=== PATIENT | female | born 1945 | race Caucasian/White ===

== ENCOUNTER → 2018-02-24 07:10 | Day surgery (SDC) | payer MEDICARE ==
--- NOTE | 2018-02-14 22:20 | HP ---
CC: Dr. Laquita Hong * PREOPERATIVE HISTORY AND PHYSICAL: DATE OF ADMISSION: 02/24/18 This patient is scheduled for same-day surgery admission by Dr. Negron on 02/24/18. DATE OF PREOPERATIVE HISTORY AND PHYSICAL EXAMINATION: 02/14/18. ATTENDING SURGEON: Dr. Radha Negron * (dictated by Alicia Diggs NP). CHIEF COMPLAINT: Right breast cancer. HISTORY OF PRESENT ILLNESS: The patient is a 72-year-old female recently evaluated by Dr. Negron for a new diagnosis of right breast cancer. The patient had not noticed any changes in her breast, but on a recent mammogram, an abnormality was identified in the right breast. A sonogram confirmed the abnormality and she underwent a biopsy 2 days later that revealed invasive ductal cancer. She denies any breast pain or nipple discharge. She denies any family history of breast cancer or ovarian cancer. Menarche was at age 12, menopause at age 57, first delivery at age 24. She took control pills for less than 10 years. She has never had radiation to the chest and she has not had previous breast biopsies. She did breast-feed. Dr. Negron has examined the patient and discussed the findings with her; she has recommended sonoguided-needle localization excision of the right breast cancer and sentinel lymph node biopsy as same-day surgery procedure. Dr. Negron discussed the nature of the surgical procedure, the rationale for the procedure, the relevant risks, benefits, and alternatives, and today I reviewed the expected postoperative care and recovery. The patient has had a chance to ask questions and stated that she understands the information and is satisfied with the answers given to her questions. She will sign surgical consent on the day of surgery. PAST MEDICAL HISTORY: Significant for hypertension and mitral valve prolapse and mild asthma. PAST SURGICAL HISTORY: Vaginal hysterectomy in 2000, tonsillectomy many years ago, cardiac catheterization at [facility] in 2016. MEDICATIONS: 1. Liza 180 mg p.o. every other day. 2. Amlodipine 5 mg p.o. daily. 3. Famotidine 20 mg 1 tablet by mouth daily. 4. Aspirin 81 mg p.o. daily and the patient will take her last dose 02/18/18 in preparation for surgery. 5. Potassium gluconate 99 mg p.o. daily. 6. Zolpidem 5 mg one-half tablet at bedtime. She also takes the following supplements: 1. Vitamin E. 2. Vitamin B12. 3. Vitamin D3. 4. Calcium plus vitamin D. 5. Magnesium with zinc. 6. Fish oil/omega-3. She uses acetaminophen or ibuprofen p.r.n. ALLERGIES: ERYTHROMYCIN causes hives. FAMILY HISTORY: No known history of breast or ovarian cancer; mother had heart disease and thyroid disease. Father had a stroke. No known anesthesia reactions, bleeding tendencies, or clotting disorders. SOCIAL HISTORY: She is ; she is a nonsmoker. She drinks alcohol socially and denies the use of other substances and she exercises routinely. REVIEW OF SYSTEMS: Constitutional: No fevers, chills, excessive fatigue or weight loss. Endocrine: No diabetes or thyroid disease. Hematologic: No easy bruising or bleeding. She has never received a blood transfusion. Breasts : As described in history of present illness. Respiratory: No dyspnea on exertion. No chronic cough. Cardiovascular: No anginal chest pain, no palpitations; she does have a history of mitral valve prolapse and is followed by a shot bagger in [place] by the name of Dr. Stratton; she had a stress test and an echocardiogram and a cardiac catheterization in 2016 for evaluation of the mitral valve prolapse and was told that all of the results were within normal limits. Gastro-intestinal: No nausea, vomiting, diarrhea, GI bleeding, or constipation. Genitourinary: No dysuria. Musculoskeletal: No joint or back pain. Neurologic: No headache or blurred vision. No areas of focal weakness or numbness. General: No history of deep vein thrombosis or pulmonary embolism. With previous anesthesia, she experienced a prolonged headache. PHYSICAL EXAMINATION GENERAL SURVEY: The patient is a 72-year-old female, well-developed, well- nourished, in no acute distress. VITAL SIGNS: Height 68 inches, weight 178 pounds, body mass index 27.1. Blood pressure 102/68, pulse 60 and regular, respiratory rate 16, temperature 97.7 tympanic. HEENT: Benign. NECK: Supple. No cervical lymphadenopathy. No thyromegaly. No supraclavicular lymphadenopathy. BREASTS: Symmetrical. No masses are noted in the right breast on palpation. No masses are noted in the left breast on palpation. Nipples are normal bilaterally. LUNGS: Breath sounds bilaterally clear and equal. HEART: Regular rate and rhythm. No murmurs or rubs appreciated. ABDOMEN: Active bowel sounds, soft, nondistended, and nontender throughout. No obvious masses or organomegaly or evidence of ventral hernia. EXTREMITIES: Warm without edema or skin ulcerations. PELVIC EXAM: Deferred. RECTAL EXAM: Deferred. NEUROLOGIC: Alert and oriented x3. Steady gait. SKIN: Warm, dry, and intact. IMPRESSION: Right breast cancer. PLAN: Same-day surgery admission to Dr. Negron's service on 02/24/18, for sonoguided-needle localization excision of right breast cancer and sentinel lymph node biopsy. HARSHA DIGGS, HEALTH EDUCATION ASSISTANT [id number]/[facility] #: [id number] RUBEN
[~2018-02-24 07:10] MED LIST: Buffered Lidocaine 0.9% SYRIN* 5 ML/SYR SYRINGE INTRADERM ONE; Bupivacaine 0.5% SDV PF* 30ML VIAL ONE; Dexamethasone IV* 4 MG/ML 1 ML (4 MG) IV SLOW PU ONE; Dexamethasone IV* 4 MG/ML 1 ML (4 MG) ONE; DiMENhydriNATE IV* 50 MG/ML VIAL IV PUSH PRN; HYDROcodone/ACETAMIN 5-325 MG* 1 TAB PO PRN; Heparin VIAL(*) 5000 UNITS/ML VIAL (FIVE THOUSAND) ONE; Lidocaine 1% INJ* 10 MG/ML 30 ML SDV ONE; Lidocaine 2% PF * 5 ML VIAL ONE; Lidocaine 2.5%/Prilocain 2.5%* 5 GM TUBE ONE; Methylene Blue 0.5 %* 50 MG/10 ML AMP IV ONE; Midazolam* 1 MG/ML 5 ML VIAL (5 MG) ONE; Naloxone* 0.4 MG/ML 1 ML VIAL IV PRN; Ondansetron INJ* 2 MG/ML VIAL IV PRN; Ondansetron ODT TAB* 4 MG ONE; Ondansetron ODT TAB* 4 MG PO ONE; Propofol* 10 MG/ML 20 ML BTL IV PUSH ONE; Scopolamine 1.5 mg* PATCH TRANSDERM PRN; ceFAZolin 2 GM PREMIX (*) 2 GM/50 ML BAG IVPB ONE; fentaNYL* 50 MCG/ML 2 ML VIAL (100 MCG VIAL) IV PRN; fentaNYL* 50 MCG/ML 2 ML VIAL (100 MCG VIAL) ONE; oxyCODONE/Acetamin 5/325 MG* TAB ONE; oxyCODONE/Acetamin 5/325 MG* TAB PO PRN
--- NOTE | 2018-02-24 09:06 | RAD ---
INDICATION: Right breast mass present in the 12 clock, needle localization procedure. COMPARISON: Correlation is made with prior mammograms and breast ultrasound studies from January 26, 2018 and February 02, 2018. TECHNIQUE: The benefits and risks of the procedure were explained to the patient. The patient consented to the exam. A timeout was performed before beginning the procedure. Multiple images of the right breast were obtained. Again note is made of a solid 1 cm mass approximately at the 12:00 position. The patient was prepped and draped in the usual sterile fashion. The right breast was anesthetized with 1% lidocaine. Using ultrasound guidance a needle was placed through the posterior aspect of the mass at the 12:00 position. This was exchanged for a Parmar type wire. A postprocedure ultrasound demonstrates that the wire extending through the mass. The patient tolerated procedure well without incident. Mediolateral oblique, craniocaudad and mediolateral images of the right breast were obtained after the needle localization demonstrating the wire extending through the posterior aspect of the mass at the 12:00 position in the breast. There is no evidence for hematoma. IMPRESSION: SUCCESSFUL ULTRASOUND-GUIDED RIGHT BREAST NEEDLE LOCALIZATION.
--- NOTE | 2018-02-24 12:00 | RAD ---
INDICATION: Right breast carcinoma. Comparison: Correlation is made with prior mammograms and a right breast ultrasound from February 02, 2018. Technique: The benefits and risks of the procedure were explained to the patient. The patient consented to the exam. A timeout was performed before beginning the procedure. 0.32 mCi of technetium 99m filtered sulfur colloid were injected in a anselmo-areolar location. Four intradermal injections were made. The patient tolerated the procedure well without incident. Multiple images of the chest and right axilla were obtained in the frontal, oblique and lateral projections. FINDINGS: There was a single sentinel node present in the right axilla. This was marked and localized on the patient's skin. IMPRESSION: THERE IS A SINGLE SENTINEL NODE IN THE RIGHT AXILLA WHICH WAS LOCALIZED IN MARKED ON THE PATIENT'S SKIN.
--- NOTE | 2018-02-24 16:44 | BRIEFOPN ---
Brief Operative Note - Surgery Procedures: 02/24/18 Op Note (Dictated) Pre-op dx: right breast cancer Post-op dx: same Procedure: needle localization excision of right breast cancer and sentinel lymph node biopsy Surgeon: Jamil Asst: KENNY Paulino; JAMI Yancey Anesth: local-MAC EBL: 30 cc Complications: none SCDs: on during surgery Abx: given pre-op Pt. tolerated procedure well and was transferred to in a stable condition. CLFoster
[2018-02-24 17:42] VITALS: BP 136/76
--- NOTE | 2018-02-25 13:21 | OP ---
CC: Dr. Laquita Sanchez; [facility] * DATE OF OPERATION: 02/24/18 - [facility] DATE OF : 45 SURGEON: Radha Negron MD LOCK SETTER: KENNY Sheikh; and GREGORY Olea student. PRE-OP DIAGNOSIS: Right breast cancer. POST-OP DIAGNOSIS: Right breast cancer. OPERATIVE PROCEDURE: Needle localization and excision of right breast cancer and sentinel lymph node biopsy. INDICATIONS: Ms. Mauro is a 72-year-old woman recently diagnosed with breast cancer prompting the plan for surgical intervention. On the morning of surgery , she underwent needle localization and sentinel lymph node localization without difficulty. DESCRIPTION OF PROCEDURE: She was then brought to the operating room, placed on the OR table in the supine position and given IV sedation. The right breast was prepped and draped in the usual sterile fashion as well as the axilla. The breast was infiltrated with local anesthetic around the localizing wire and then a curvilinear elliptical incision encompassing the wire was made. Subcutaneous tissue was then divided with electrocautery to remove the mass of tissue from around the wire. When it was recognized that the mass of tissue did not encompass the entire wire, the specimen was marked in the usual fashion and handed off for confirmation from Radiology, but then an additional tissue from posterolateral to the first specimen was taken. This was also done with electrocautery and once this was specimen was out, it was marked in the usual fashion and then handed off as a specimen to be sent to Radiology. Then, hemostasis was achieved with electrocautery and once this appeared adequate the cavity was marked with clips and the incision was closed with 3-0 Vicryl in the subcutaneous layer and the skin was closed with 4-0 Prolene in a subcuticular fashion. Attention was then turned to the axilla. Here, local anesthetic was infiltrated into the skin at the level of the sentinel lymph node and then a curvilinear incision was made. Subcutaneous tissue was divided with electrocautery down to the level of the axillary fat pad. Then, using the navigator, the approximate location of the node was identified and dissection was begun in this area using primarily sharp and blunt dissection. The lymph node was identified and noted to have elevated in situ counts to about 2200. It was excised using clips to control the small lymphatic and blood vessels that approached the gland. Once it was out, it had ex vivo counts measured at 3200. The axillary bed counts were 5. The wound was checked for hemostasis, which was achieved with a combination of suture ligature and clips and once this appeared adequate closure was accomplished with 3-0 Vicryl in the subcutaneous layer and the skin was closed with 4-0 Prolene in a subcuticular fashion. Meanwhile, the report came back from Radiology that the specimens that have been sent did not appear to contain the abnormality, so the breast incision was opened and additional tissue from the superior breast was taken. This was done after trying to identify any residual abnormality with intraoperative ultrasound , but this did not identify any residual abnormality. As we were working to remove the tissue superiorly, Radiology called back with a report that on tomosynthesis the first specimen did indeed appear to contain the abnormality, so we completed the excision of a small amount of tissue from the superior breast, marked it in the usual fashion and handed it off as a specimen. The wound was then checked for hemostasis, which was achieved with electrocautery and then closure was accomplished with 3-0 Vicryl to reapproximate the subcutaneous tissue and the skin was closed with 4-0 Prolene in a subcuticular fashion. Meanwhile, at my request, the specimens had been sent from Radiology to Pathology, where on sectioning it was confirmed that the first specimen did indeed contain an abnormality consistent with the known cancer. All sponge and instrument counts were correct. The patient tolerated the procedure well and was transferred to Recovery in a stable condition. [id number]/[facility] #: [id number] RUBEN
== END | disposition home or self-care (01) ==
LOC: SDS 07:10
PROVIDERS: ATTEND Surgery
DX: C50.911 Malignant neoplasm of unspecified site of right female breast (principal); I10 Essential (primary) hypertension; J45.909 Unspecified asthma, uncomplicated; I34.1 Nonrheumatic mitral (valve) prolapse
CPT/HCPCS: 77061; 78195; 88307; 88342; A9270-GY; A9541; G0279; J0690; J1100; J1644; J2250; J2704; J3010

== ENCOUNTER 2019-08-31 08:55 | Observation (INO) | payer MEDICARE ==
--- NOTE | 2019-08-24 03:51 | HP ---
HISTORY AND PHYSICAL: DATE OF ADMISSION/SURGERY: 09/14/19 DATE OF OFFICE VISIT: 08/22/19 SURGEON: Felicia Alvarez MD * (DICTATED BY GREGORY CALLES) PROCEDURE: Right total knee arthroplasty. CHIEF COMPLAINT: Right knee pain. HISTORY OF PRESENT ILLNESS: Ms. Mauro is a 74-year-old female with end-stage osteoarthritis of the right knee. She has failed conservative treatment and elected to proceed with a right total knee arthroplasty. PAST MEDICAL HISTORY: Hypertension, high cholesterol, heart murmur, asthma, and uterine and breast cancer. PAST SURGICAL HISTORY: Hysterectomy, tonsillectomy, lumpectomy, D and C, and cardiac catheterization. CURRENT MEDICATIONS: 1. Liza-D. 2. Amlodipine 5 mg a day. 3. Famotidine 20 mg a day. 4. Aspirin 81 mg a day. 5. Vitamin E. 6. Vitamin D3. 7. Potassium. 8. Calcium with vitamin D. 9. Magnesium with zinc. 10. Fish oil. 11. Zolpidem tartrate 12.5 mg q.h.s. 12. Metoprolol 25 mg daily. 13. Atorvastatin calcium 10 mg a day. 14. Arimidex 1 mg a day. ALLERGIES: AZITHROMYCIN. FAMILY HISTORY: Coronary artery disease and stroke. SOCIAL HISTORY: She is a 74-year-old female. She lives with her . She does not smoke or use drugs. Uses occasional alcohol. REVIEW OF SYSTEMS: A complete 14-point review of systems was reviewed with the patient. It was positive for asthma and GERD. She denies history of DVT, PE, hepatitis, HIV, or anesthesia problems. PHYSICAL EXAMINATION GENERAL: She is well developed, well nourished, in no acute distress. VITAL SIGNS: She stands 5 feet 8 inches tall, weighs 187 pounds. Her blood pressure is 132/78 and heart rate 64. HEENT: Normocephalic, atraumatic. NECK: Supple. No palpable lymph nodes. PULMONARY: The lungs are clear to auscultation bilaterally. CARDIO: Regular rate and rhythm. Strong S1, S2. ABDOMEN: Soft, nontender, nondistended. NEUROLOGICAL: She is alert and oriented x3. MUSCULOSKELETAL: Right lower extremity: The skin is intact. There are no open wounds or abrasions. There is a moderate effusion of the right knee joint and some tenderness along the medial joint line. Range of motion is 15 to 100 degrees of flexion with significant patellofemoral crepitus. She is able to dorsiflex and plantarflex and has a 2+ dorsalis pedis pulse and intact sensation. ASSESSMENT AND PLAN: Ms. Mauro is a 74-year-old female with end-stage osteoarthritis of the right knee. She has failed conservative treatment and elected to proceed with a right total knee arthroplasty. The surgery is scheduled for 09/14/[address] Alvarez discussed the risks and benefits of the surgery at today's visit and all of her questions were answered. She will follow up with Dr. Alvarez 2 weeks after the surgery. GREGORY CALLES [id number]/[facility] #: [id number] MTDD
[~2019-08-31 08:55] MED LIST changes: -Buffered Lidocaine 0.9% SYRIN* 5 ML/SYR SYRINGE INTRADERM ONE; +Buffered Lidocaine 1% SYRIN* 1 ML/SYRINGE INTRADERM ONE; -Bupivacaine 0.5% SDV PF* 30ML VIAL ONE; -Dexamethasone IV* 4 MG/ML 1 ML (4 MG) ONE; -DiMENhydriNATE IV* 50 MG/ML VIAL IV PUSH PRN; +Famotidine IV* 10 MG/ML 2 ML (20 mg) IV ONE; +Gabapentin CAP(*) 300 MG PO ONE; -HYDROcodone/ACETAMIN 5-325 MG* 1 TAB PO PRN; -Heparin VIAL(*) 5000 UNITS/ML VIAL (FIVE THOUSAND) ONE; +Lactated Ringers 1000 ML Bag* 1,000 ML IV SCH; -Lidocaine 1% INJ* 10 MG/ML 30 ML SDV ONE; -Lidocaine 2% PF * 5 ML VIAL ONE; -Lidocaine 2.5%/Prilocain 2.5%* 5 GM TUBE ONE; -Methylene Blue 0.5 %* 50 MG/10 ML AMP IV ONE; -Midazolam* 1 MG/ML 5 ML VIAL (5 MG) ONE; -Naloxone* 0.4 MG/ML 1 ML VIAL IV PRN; -Ondansetron INJ* 2 MG/ML VIAL IV PRN; -Ondansetron ODT TAB* 4 MG ONE; -Ondansetron ODT TAB* 4 MG PO ONE; -Propofol* 10 MG/ML 20 ML BTL IV PUSH ONE; -Scopolamine 1.5 mg* PATCH TRANSDERM PRN; +Tranexamic Acid 1,000 MG in NS 0.9% 50 ML* (outpatient use) IV SCH; -ceFAZolin 2 GM PREMIX (*) 2 GM/50 ML BAG IVPB ONE; +celeCOXIB CAP* 200 MG PO ONE; -fentaNYL* 50 MCG/ML 2 ML VIAL (100 MCG VIAL) IV PRN; -fentaNYL* 50 MCG/ML 2 ML VIAL (100 MCG VIAL) ONE; -oxyCODONE/Acetamin 5/325 MG* TAB ONE; -oxyCODONE/Acetamin 5/325 MG* TAB PO PRN
[2019-08-31] MEDS ORDERED: Dexamethasone IV* 4 MG/ML 1 ML (4 MG) ONE (09:35)
[2019-08-31] MEDS ORDERED: ceFAZolin 2 GM PREMIX in ORs 2 GM/50 ML BAG ONE (09:35)
[2019-08-31] MEDS ORDERED: Gabapentin CAP(*) 300 MG ONE (09:35)
[2019-08-31] MEDS ORDERED: celeCOXIB CAP* 200 MG ONE (09:35)
[2019-08-31] MEDS ORDERED: Famotidine IV* 10 MG/ML 2 ML (20 mg) ONE (09:36)
[2019-08-31] MEDS ORDERED: Buffered Lidocaine 1% SYRIN* 1 ML/SYRINGE INTRADERM ONE (09:36)
[2019-08-31] MEDS ORDERED: Bupivacaine 0.5% SDV PF* 30ML VIAL ONE (09:55)
[2019-08-31] MEDS ORDERED: ROPIVACAINE 5 MG/ML 30 ML BTL (0.5%) ONE ×2 (09:57→11:15)
[2019-08-31] MEDS ORDERED: fentaNYL* 50 MCG/ML 2 ML VIAL (100 MCG VIAL) ONE (09:57)
[2019-08-31] MEDS ORDERED: Midazolam* 1 MG/ML 2 ML VIAL (2 MG) ONE ×2 (09:57→11:56)
[2019-08-31] MEDS ORDERED: Lidocaine 2% PF * 5 ML VIAL ONE (09:57)
[2019-08-31] MEDS ORDERED: KETAMINE HCL* 50 MG/ML 10 ML VIAL ONE (11:57)
[2019-08-31] MEDS ORDERED: Propofol* 500 MG/50 ML BTL ONE (12:09)
[2019-08-31] MEDS ORDERED: Naloxone* 0.4 MG/ML 1 ML VIAL IV PRN (12:54)
[2019-08-31] MEDS ORDERED: HYDROmorphone INJ1* 1 MG/ML SYRINGE IV PRN (12:54)
[2019-08-31] MEDS ORDERED: Ondansetron INJ* 2 MG/ML VIAL IV PRN ×2 (12:54→14:15)
[2019-08-31] MEDS ORDERED: Acetaminophen IV 1GM/100ML * 1,000 MG/100 ML VIAL IVPB ONE (12:54)
[2019-08-31] MEDS ORDERED: EPHEDrine (Pressors)* 50 MG/ML VIAL ONE (12:58)
[2019-08-31] MEDS ORDERED: Acetaminophen IV 1GM/100ML * 100 ML ONE (14:08)
[2019-08-31] MEDS ORDERED: Ondansetron ODT TAB* 4 MG PO PRN (14:15)
[2019-08-31] MEDS ORDERED: Ondansetron TAB* 4 MG PO PRN (14:15)
[2019-08-31] MEDS ORDERED: diPHENhydraMINE IV* 50 MG/ML 1 ml VIAL (BENADRYL) IV PRN (14:15)
[2019-08-31] MEDS ORDERED: Polyethylene Glycol 3350* 17 GM PACKET PO PRN (14:15)
[2019-08-31] MEDS ORDERED: diPHENhydraMINE PO* 25 MG PO PRN (14:15)
[2019-08-31] MEDS ORDERED: Cyclobenzaprine TAB* 10 MG PO PRN (14:15)
[2019-08-31] MEDS ORDERED: Magnesium Hydroxide LIQ* 30 ML UDC PO PRN (14:15)
[2019-08-31] MEDS ORDERED: Morphine INJ* 2 MG/ML 1 ML SYRINGE (TWO MG - NEW SYRINGE VERSION) IV PRN (14:15)
[2019-08-31] MEDS ORDERED: oxyCODONE/Acetamin 5/325 MG* TAB PO PRN (14:15)
[2019-08-31] MEDS ORDERED: traMADol TAB* 50 MG PO PRN (14:15)
--- NOTE | 2019-08-31 14:22 | OP ---
Operative Report - Blank - Operative Report Date of Operation: 08/31/19 Note: DAYDAY KWOK 1945 Date of Surgery: 08/31/19 Felicia Alvarez MD Tie Fastener: Kilo JENKINS did help throughout the procedure with preparation of the knee, wound retraction, manipulation of the knee, and wound closure. Anesthesiologist: Horacio Cho Anesthesia Type: Spinal Preoperative Diagnosis: Right severe degenerative osteoarthritis of the knee Postoperative Diagnosis: As above Procedure Performed: Right Total Knee Arthroplasty Tourniquet time: 41 minutes Complications: None Specimen: Bone and cartilage from the right knee joint sent to pathology. Hardware Used: Cemented Bailey and Nephew total knee hardware was used - For the femur a size 5 narrow right oxinium legion posterior stabilized femoral component, for the tibia a size 3 right katina II tibial baseplate, for the insert a size 9mm 3-4 posterior stabilized articular polyethylene insert, and for the patella a size 32 3-peg all poly patella. Brief History/Indication: DAYDAY KWOK was known in clinic and had a history of severe right knee pain and swelling. She failed conservative treatment with anti-inflammatories, pain pills, intra-articular injections and physical therapy. She elected to undergo right total knee arthroplasty due to continued pain and decreased quality of life. Radiographs showed severe end stage osteoarthritis of the knee with bone on bone contact. Informed consent was obtained from the patient. She understood the risks of surgery included but were not limited to: bleeding, infection, damage to nearby structures, intraoperative fracture, nerve palsy, failure of the hardware, early loosening, knee stiffness or loss of motion, anesthesia complications, stroke, heart attack , blood clot and . She wished to proceed. Intra-Operative Findings: Intraoperatively the patient was noted to have severe loss of cartilage in all 3 compartments of the knee. Description of the Procedure: DAYDAY KWOK was identified in the preanesthesia unit. Her right knee was marked as the correct operative side. Informed consent was signed and placed in the chart. The patient was taken to the operating room and placed under anesthesia without complication. A almodovar catheter was placed. A tourniquet was placed on the right thigh. The right lower extremity was prepped and draped in the usual sterile fashion. Preoperative time-out was made to correctly identify the patient, side and site. Appropriate intraoperative antibiotics were given within one hour of incision. Tourniquet was inflated. A midline incision was made and carried sharply down to the extensor mechanism. A new 10 blade was used to make a standard medial parapatellar arthrotomy. The patella was subluxed laterally. Electrocautery was used to dissect soft tissue off the superomedial tibia to the midsagittal plane. The knee was flexed up. The anterior horn of the lateral meniscus and the ACL were sharply incised. A drill was used to enter the distal femur. The intramedullary distal femoral cutting guide was pinned on the distal femur. The oscillating saw was used to make the distal femoral cut. The external rotation guide was pinned on the distal femur and the distal femur was sized to a size 5. The size 5 multi-cutting jig was pinned on the distal femur. The oscillating saw was used to make the appropriate 4 chamfer cuts. Next the PCL was completely released. The extramedullary tibial cutting guide was pinned on the proximal tibia and the oscillating saw was used to make the proximal tibial cut perpendicular to the mechanical axis of the tibia. The bone was carefully removed. The knee was brought out into full extension. The spacer block was placed and had excellent fit with the knee in full extension. The medial and lateral ligaments were well balanced. The flexion and extension gaps were well balanced. The knee was flexed up. Lamina tugboat dispatcher was placed both medially and laterally. Any remaining meniscus was removed with electrocautery. Curved osteotome was used to remove any posterior osteophytes. The tibial tray and drop chance were placed and confirmed a satisfactory tibial cut. The size 5 right narrow femoral trial was impacted onto the distal femur. This trial had excellent fit and stability. The box for the posterior stabilized implant was prepared using a box cut osteotome and a reamer. Next a tibial tray trial and 9 mm insert trial was placed. The knee was taken through a range of motion and had full extension to 130 degrees of flexion. Patellofemoral tracking was satisfactory. The patella was inverted and sized to a size 32. Three peg holes were drilled through the size 32 drill guide. The trial patella was placed and the knee was taken through a range of motion. There was satisfactory patellofemoral tracking. All trials were removed. The tibia was subluxed anteriorly and sized to a size 3. The proximal tibial was prepared with a size 3 keel punch. All bony cut surfaces were irrigated with sterile saline and dried. Final implants were cemented into place starting with the tibia, followed by the femur, and last the patella. A 9 mm insert trial was placed and the knee was brought into full extension. Tourniquet was turned down and the knee was copiously irrigated with sterile saline. Electrocautery was used to obtain meticulous hemostasis. Once the cement had fully cured, the insert trial was removed. Any excess cement was removed from around the hardware and capsule. Final insert chosen was a 9 mm posterior stabilized Katina II articular insert size 3-4. Stability of the insert was checked and noted to be stable. The extensor mechanism was closed using number 1 vicryls. The rest of the incision was closed in a layered fashion using 0 and 2-0 vicryls. The skin was closed using 3-0 nylon suture. Sterile xeroform, 4x4s and webril were used to cover the incision. Gian wrap and cold pack were used to cover the dressings. The patients anesthesia was reversed without difficulty. She was taken to the PACU in stable condition. Intended weight-bearing will be as tolerated.
[2019-08-31] MEDS: Lactated Ringers 1000 ML Bag* 1,000 ML IV SCH (17:31)
[2019-08-31] MEDS: ceFAZolin 1 GM ADVAN(*) 1 GM in NS 0.9% 50 ML* 50 ML IVPB SCH (20:39)
[2019-08-31] MEDS: Docusate CAP* 100 MG PO SCH (20:39)
[2019-08-31] MEDS: Magnesium Hydroxide LIQ* 30 ML UDC PO SCH (20:39)
[2019-08-31] MEDS: Acetaminophen TAB* 325 MG PO SCH (21:00)
[2019-08-31] MEDS: NS 0.9% 1000 ML** 2,000 ML IV ONE ×2 (22:05→23:13)
[2019-08-31 22:25] LABS: ABS Basophils 0.1 10^3/ul (0-0.2); ABS Lymphocytes 0.3 10^3/ul (1.0-4.8); ABS Monocytes 0.6 10^3/ul (0-0.8); ABS Neutrophils 12.5 10^3/ul (1.5-7.7); Hematocrit 38 % (35-47); Hemoglobin 12.5 g/dL (12.0-16.0); Lymphocyte % 2.1 %; Mean Corpuscular HGB Conc 33 g/dL (31-36); Mean Corpuscular Hemoglobin 30 pg (27-31); Mean Corpuscular Volume 91 fL (80-97); Mean Platelet Volume 8.7 fL (7.4-10.4); Nucleated Red Blood Cells % 0.1; Platelet Count 224 10^3/uL (150-450); Red Blood Count 4.19 10^6 /uL (3.70-4.87); Red Cell Distribution Width 14 % (10-15); White Blood Count 13.4 10^3/uL (3.5-10.8)
--- NOTE | 2019-08-31 22:34 | CONS ---
CC: Dr. Hong * MEDICINE CONSULTATION REPORT: DATE OF CONSULT: 08/31/19 PRIMARY CARE PHYSICIAN: Dr. Laquita Hong. PROVIDER: Stephanie Ignacio NP. CONSULTING PHYSICIAN: Dr. Neris Yuan (dictated by Stephanie Ignacio NP) REQUESTING PHYSICIAN: Dr. Alvarez. REASON FOR CONSULT: Co-medical management in postoperative period. HISTORY OF PRESENT ILLNESS: Ms. Mauro is a 74-year-old female with a history of end-stage osteoarthritis of the right knee, who failed conservative treatment and has opted for elective admission today for total right knee arthroplasty. She is status post surgery and seen in the PACU. She is alert, conversive, is very pleasant and states that she is not experiencing any pain. She reports being in her usual state of health prior to admission. Denies any recent illness. Currently denies any chest pain, shortness of breath, abdominal pain, nausea, vomiting or other concerns. She does have sensation to her lower extremities and states that her pain is currently well controlled. PAST MEDICAL HISTORY: Significant for: 1. Hypertension. 2. Hypercholesterolemia. 3. History of heart murmur. 4. Asthma. 5. Uterine cancer. 6. Breast cancer. PAST SURGICAL HISTORY: Includes: 1. Hysterectomy. 2. Tonsillectomy. 3. Lumpectomy. 4. D and C. 5. Cardiac catheterization. 6. Right total knee arthroplasty as of 08/31/19. HOME MEDICATIONS: 1. Fexofenadine 180 mg q.a.m. 2. Arimidex 1 mg q.a.m. 3. Acetaminophen 500 to 1000 tabs daily p.r.n. 4. Vitamin B12 1000 mcg daily. 5. Cholecalciferol 5000 units daily. 6. Calcium with vitamin D supplement 1 capsule daily. 7. Atorvastatin 10 mg q.a.m. 8. Aspirin 81 mg every other day. 9. Famotidine 20 mg q.a.m. 10. Potassium gluconate 99 mg q.a.m. 11. Metoprolol tartrate 25 mg q.a.m. 12. Magnesium 400/zinc 1 tab q.a.m. 13. Amlodipine 5 mg q.a.m. 14. Zolpidem ER 12.5 mg at bedtime. 15. Vitamin E 400 units q.a.m. 16. Actonel 150 mg monthly. 17. Fish oil 1000 mg q.a.m. ALLERGIES: Include CODEINE, ERYTHROMYCIN. FAMILY HISTORY: Significant for coronary artery disease and stroke. SOCIAL HISTORY: She denies any smoking history or drug use history. She reports occasional use of alcohol on social occasions. She lives with her . She lists her , Mr. Tahmina Mauro, as her surrogate decision maker and healthcare proxy. REVIEW OF SYSTEMS: A 14-point review of systems was completed with the patient. All pertinent positives and negatives as per HPI and medical history, all those not mentioned are negative. PHYSICAL EXAM: Vital Signs: Temperature 96.9, heart rate 54, respiratory rate 16, blood pressure 120/57, O2 saturation 99% on room air. General: This is a well- developed, well-nourished, 74-year-old female seen lying in the PACU stretcher, in no acute distress. She is pleasant and conversive. HEENT: Head is atraumatic, normocephalic. Pupils are equal, round, and reactive to light and accommodation. Extraocular movements are intact. Sclerae are anicteric. Oral mucosa is moist. Neck is supple with full range of motion. Cardiovascular : Regular rate and rhythm. Normal S1, S2 heart sounds. No peripheral edema noted. Lungs are clear to auscultation bilaterally. Abdomen is soft, nontender , nondistended with normoactive bowel sounds. Musculoskeletal: The right lower extremity with clean, dry, intact dressing in placed and cryo-cuff. Left lower extremity observed with full range of motion, difficulty bending of the knee and flexing and dorsiflexion of the foot. Skin: Visible areas warm and dry without compromise. Neuro: She is alert and oriented x3. No focal deficits. Speech is clear. ASSESSMENT AND PLAN: This is a 74-year-old female with a past medical history significant for osteoarthritis, hypertension, high cholesterol, asthma, uterine and breast cancer, who is admitted today electively for right total knee replacement. 1. Status post right knee arthroplasty. She is postop day #1. Management per Ortho. We will continue with p.r.n. analgesia, bowel regimen, PT/OT. 2. Hypertension. Currently well controlled. Continue home amlodipine and monitor blood pressures. She is also on metoprolol which we will also continue and utilize hold parameters if there is evidence for hypotension or bradycardia. 3. Hypercholesterolemia. Continue home atorvastatin. 4. History of breast cancer. Continue Arimidex. 5. Gastroesophageal reflux disease. Continue famotidine. 6. FEN: Heart healthy diet. 7. DVT prophylaxis: As per Ortho, she is ordered apixaban. 8. Code status: She is a full code. TIME SPENT: Approximately 45 minutes was spent on this consultation with greater than half that time spent [id number] with the patient obtaining history and physical, performing physical examination, and reviewing the plan of care. Plan of care was also reviewed with my attending, Dr. Yuan, who is in agreement. STEPHANIE IGNACIO, [employer] [id number]/CPS #: [id number] RUBEN
[2019-08-31 22:43] LABS: Albumin 3.6 g/dL (3.2-5.2); Albumin/Globulin Ratio 1.9 (1-3); BUN/Creatinine Ratio 22.5 (8-20); Calcium 8.6 mg/dL (8.6-10.3); EGFR African American 97.4 (>60); EGFR Non-African American 80.5 (>60); Globulin 1.9 g/dL (2-4); Potassium 3.8 mmol/L (3.5-5.0); Total Bilirubin 0.6 mg/dL (0.2-1.0); Total Protein 5.5 g/dL (6.4-8.9)
[2019-09-01] MEDS: Lactated Ringers 1000 ML Bag* 1,000 ML IV SCH (00:25)
[2019-09-01] MEDS: Zolpidem TAB* 10 MG PO SCH ×2 (00:28→22:28)
[2019-09-01] MEDS: ceFAZolin 1 GM ADVAN(*) 1 GM in NS 0.9% 50 ML* 50 ML IVPB SCH ×2 (04:01→11:42)
[2019-09-01] MEDS: oxyCODONE TAB* 5 MG TAB PO PRN ×5 (04:04→20:45)
[2019-09-01] MEDS: Acetaminophen TAB* 325 MG PO SCH ×3 (06:28→22:29)
[2019-09-01 07:10] LABS: Hematocrit 32 % (35-47); Mean Platelet Volume 8.3 fL (7.4-10.4); Platelet Count 206 10^3/uL (150-450)
[2019-09-01 07:29] LABS: BUN/Creatinine Ratio 23.2 (8-20); Calcium 8.1 mg/dL (8.6-10.3); EGFR Non-African American 105.8 (>60)
[2019-09-01] MEDS: Metoprolol Tartrate TAB* 25 MG PO SCH (09:28)
[2019-09-01] MEDS: amLODIPine TAB* 5 MG PO SCH (09:29)
[2019-09-01] MEDS: Cetirizine* 10 MG TAB PO SCH (09:33)
[2019-09-01] MEDS: POTASSIUM GLUCONATE 99 MG PO SCH (09:33)
[2019-09-01] MEDS: Apixaban* 2.5 MG TAB PO SCH ×2 (09:34→20:45)
[2019-09-01] MEDS: CMCS:Anastrozole (NF) 1 MG TAB PO SCH (09:34)
[2019-09-01] MEDS: Docusate CAP* 100 MG PO SCH ×2 (09:34→20:45)
[2019-09-01] MEDS: Atorvastatin* 10 MG TAB PO SCH (09:34)
[2019-09-01] MEDS: Famotidine TAB* 20 MG PO SCH (09:34)
[2019-09-01] MEDS: Vitamin THERAPEUTIC TAB PO SCH (09:34)
[2019-09-01] MEDS: Magnesium Hydroxide LIQ* 30 ML UDC PO SCH (09:40)
--- NOTE | 2019-09-01 10:24 | PN ---
Subjective Date of Service: 09/01/19 Interval History: Patient seen and examined at bedside. Ms. Mauro is a 74 yo female, admitted yesterday for elective RTK replacement. Feels well this morning, reports increased pain with mobility and ambulation. Pain medication has been helpful. She currently denies fever/chill, dizziness, CP, SOB, abd pain, n/v. Had an episode of near syncope last evening with noted low BP; symptoms have since resolved. Family History: Unchanged from Admission Social History: Unchanged from Admission Past Medical History: Unchanged from Admission Objective Active Medications: Acetaminophen (Tylenol Tab*) 975 mg PO Q8HR [facility] Last Admin: 09/01/19 06:28 Dose: 975 mg Amlodipine Besylate (Norvasc Tab*) 5 mg PO QAM [facility] Last Admin: 09/01/19 09:29 Dose: Not Given Anastrozole (Arimidex (Nf)) 1 mg PO QAM [facility] Last Admin: 09/01/19 09:34 Dose: 1 mg Apixaban (Eliquis*) 2.5 mg PO BID [facility] Last Admin: 09/01/19 09:34 Dose: 2.5 mg Atorvastatin Calcium (Lipitor*) [address] [facility] [place] Last Admin: 09/01/19 09:34 Dose: 10 mg Bisacodyl (Dulcolax Supp*) 10 mg SC DAILY PRN PRN Reason: CONSTIPATION Cetirizine HCl (Zyrtec*) 10 mg PO QAM [facility]; Protocol Last Admin: 09/01/19 09:33 Dose: 10 mg Cyclobenzaprine HCl (Flexeril Tab*) 10 mg PO Q6H PRN PRN Reason: SPASMS Diphenhydramine HCl (Benadryl Iv*) 25 mg IV Q6H PRN PRN Reason: PRURITIS Diphenhydramine HCl (Benadryl Po*) 25 mg PO Q6H PRN PRN Reason: PRURITIS Docusate Sodium (Colace Cap*) 100 mg PO BID [facility] Last Admin: 09/01/19 09:34 Dose: 100 mg Famotidine (Pepcid Tab*) 20 mg PO QAM [facility] Last Admin: 09/01/19 09:34 Dose: 20 mg Cefazolin Sodium 1 gm/ Sodium (Chloride) 50 mls @ 200 mls/hr IVPB Q8H [facility] Stop: 09/01/19 12:14 Last Admin: 09/01/19 04:01 Dose: 200 mls/hr Lactated Ringer's (Lactated Ringers 1000 Ml Bag*) 1,000 mls @ 100 mls/hr IV PER RATE [facility] Last Admin: 09/01/19 00:25 Dose: 100 mls/hr Lactulose (Lactulose*) 30 ml PO BID PRN PRN Reason: CONSTIPATION Magnesium Hydroxide (Milk Of Magnesia Liq*) 30 ml PO BID [facility] Last Admin: 09/01/19 09:40 Dose: 30 ml Magnesium Hydroxide (Milk Of Magnesia Liq*) 30 ml PO Q6H PRN PRN Reason: CONSTIPATION Metoprolol Tartrate (Lopressor Tab*) 25 mg PO QAM [facility] Last Admin: 09/01/19 09:28 Dose: Not Given Morphine Sulfate (Morphine Inj (Syringe))*) 2 mg IV Q4H PRN PRN Reason: Pain - Unrelieved Multivitamins (Theragran Tab*) 1 tab PO DAILY [facility] Last Admin: 09/01/19 09:34 Dose: 1 tab Non Formulary Med* ( Potassium Gluconate 99 Mg) [address] [facility] [place] Last Admin: 09/01/19 09:33 Dose: Not Given Nf Med *Risendronate (Actonel) 150mg Tablet* 1 dose PO MONTHLY [facility]; Protocol Ondansetron HCl (Zofran Inj*) 4 mg IV Q6H PRN PRN Reason: NAUSEA Ondansetron HCl (Zofran Odt Tab*) 4 mg PO Q6H PRN PRN Reason: NAUSEA Ondansetron HCl (Zofran Tab*) 4 mg PO Q6H PRN PRN Reason: NAUSEA Oxycodone HCl (Roxycodone Tab*) 10 mg PO Q4H PRN PRN Reason: Pain - Breakthrough Last Admin: 09/01/19 09:05 Dose: 10 mg Oxycodone/Acetaminophen (Percocet 5/325 Tab*) 2 tab PO Q4H PRN PRN Reason: PAIN - SEVERE Last Admin: 08/31/19 20:39 Dose: 2 tab Polyethylene Glycol/Electrolytes (Miralax*) 17 gm PO DAILY PRN PRN Reason: Constipation Tramadol HCl (Ultram*) 50 mg PO Q6H PRN PRN Reason: PAIN - MODERATE Last Admin: 08/31/19 17:57 Dose: 50 mg Zolpidem Tartrate (Ambien Tab*) 10 mg PO BEDTIME [facility]ONI[facility]; Protocol Last Admin: 09/01/19 00:28 Dose: 10 mg Vital Signs - 8 hr 09/01/19 09/01/19 09/01/19 04:04 04:07 06:29 Temperature 97.9 F Pulse Rate 81 Respiratory 16 18 18 Rate Blood Pressure 111/52 (mmHg) O2 Sat by Pulse 97 Oximetry 09/01/19 09/01/19 09/01/19 07:50 07:58 09:05 Temperature 97.9 F Pulse Rate 60 Respiratory 16 16 18 Rate Blood Pressure 110/55 (mmHg) O2 Sat by Pulse 98 95 Oximetry 09/01/19 10:07 Temperature Pulse Rate 61 Respiratory Rate Blood Pressure 123/57 (mmHg) O2 Sat by Pulse Oximetry Oxygen Devices in Use Now: None Appearance: 74 yo female, lying in bed, NAD Eyes: No Scleral Icterus, PERRLA Ears/Nose/Mouth/Throat: Mucous Membranes Moist Respiratory: Symmetrical Chest Expansion and Respiratory Effort, Clear to Auscultation Cardiovascular: NL Sounds; No Murmurs; No JVD, RRR Abdominal: NL Sounds; No Tenderness; No Distention Extremities: No Clubbing, Cyanosis Neurological: Alert and Oriented x 3, NL Muscle Strength and Tone Lines/Tubes/Other Access: Clean, Dry and Intact Peripheral IV Nutrition: Taking PO's Result Diagrams: 09/01/19 07:03 09/01/19 07:03 Assess/Plan/Problems-Billing Assessment: Ms. Mauro is a 74 yo female with a PMH significant for osteoarthritis, hypertension, high cholesterol, asthma, uterine and breast cancer, who was admitted electively for right total knee replacement. - Patient Problems (1) Status post total right knee replacement Code(s): Z96.651 - PRESENCE OF RIGHT ARTIFICIAL KNEE JOINT Comment: POD#1, management per ortho Continue pain mgmt, bowel regimen PT/OT (2) Near syncope Comment: Occurred overnight, appears 2/2 vasovagal reaction, received IVF Now resolved and asymptomatic Encourage PO fluids, discussed changing positions slowly (3) HTN (hypertension) Code(s): I10 - ESSENTIAL (PRIMARY) HYPERTENSION Comment: With good control Continue amlodipine Monitor for hypotension (4) Hypercholesteremia Code(s): E78.00 - PURE HYPERCHOLESTEROLEMIA, UNSPECIFIED Comment: Continue home atorvastatin. (5) History of breast cancer Code(s): Z85.3 - PERSONAL HISTORY OF MALIGNANT NEOPLASM OF BREAST Comment: Continue home arimidex. (6) DVT prophylaxis Code(s): Z29.9 - ENCOUNTER FOR PROPHYLACTIC MEASURES, UNSPECIFIED Comment: Per ortho Continue apixaban (7) Full code status Code(s): Z78.9 - OTHER SPECIFIED HEALTH STATUS Status and Disposition: Inpatient. Dispo per ortho
--- NOTE | 2019-09-01 15:08 | PN ---
Progress Note - Progress Note Date of Service: 09/01/19 Note: POD 2 s/p right TKA: patient resting comfortably in bed. She is alert, and denies CP, SOB or calf pain. She has been up with PT today, which went well. She had a vaso-vagal event over night but denies lightheadedness in bed. Her dressing is C/D/I with cryo in place. Intact DF/PF, with intact sensation and 2 + PT pulse. Due to her risk of falling and repeat vaso-vagal event patient will be monitored overnight with plan for discharge if no new events. She is encouraged to drink fluids, and continue working with PT. We will follow with plan for d/c tomorrow.
[2019-09-02] MEDS: oxyCODONE TAB* 5 MG TAB PO PRN ×3 (00:52→09:43)
[2019-09-02] MEDS: Acetaminophen TAB* 325 MG PO SCH (05:45)
[2019-09-02 06:39] LABS: Hematocrit 32 % (35-47); Hemoglobin 10.9 g/dL (12.0-16.0); Mean Platelet Volume 9.2 fL (7.4-10.4); Platelet Count 190 10^3/uL (150-450)
[2019-09-02 08:17] VITALS: BP 123/55
[2019-09-02] MEDS: amLODIPine TAB* 5 MG PO SCH (08:46)
[2019-09-02] MEDS: Cetirizine* 10 MG TAB PO SCH (08:46)
[2019-09-02] MEDS: Vitamin THERAPEUTIC TAB PO SCH (08:46)
[2019-09-02] MEDS: Atorvastatin* 10 MG TAB PO SCH (08:46)
[2019-09-02] MEDS: Famotidine TAB* 20 MG PO SCH (08:46)
[2019-09-02] MEDS: Metoprolol Tartrate TAB* 25 MG PO SCH (08:46)
[2019-09-02] MEDS: Docusate CAP* 100 MG PO SCH (08:46)
[2019-09-02] MEDS: Apixaban* 2.5 MG TAB PO SCH (08:46)
[2019-09-02] MEDS: CMCS:Anastrozole (NF) 1 MG TAB PO SCH (08:46)
[2019-09-02] MEDS: POTASSIUM GLUCONATE 99 MG PO SCH (08:48)
--- NOTE | 2019-09-02 09:37 | DS ---
Orthopedic Discharge Summary - Discharge Summary Date of Admission:08/31/19 Date of Discharge: 09/02/19 Date of Surgery: 08/31/19 Attending Orthopedic Provider: Dr. Alvarez Pre-operative Diagnosis: Right knee osteoarthritis Operative Procedure: Right total knee arthroplasty Disposition of Patient: Home Condition of Patient: Stable History: DAYDAY KWOK is a 74 year old F with years of increasingly severe right knee pain. Patient has failed conservative management and has elected to undergo a Right total knee arthroplasty. Hospital Course: DAYDAY was admitted to [facility] on 08/31/19. Patient underwent a Right total knee arthroplasty without complication followed by a brief recovery in PACU and transfer to the Short Stay Surgical Unit in stable condition. Our hospitalist service, physical therapy and occupational therapy also participated in this patients care. Post-op day 1: patient was alert and in no acute distress. Dressing was clean, dry and intact. Operative extremity dorsiflexion and plantarflexion intact, sensation intact to light touch distally, DP2+. Patient had a vaso-vagal reaction overnight. She was given IV and PO fluids and was observed through the day and overnight due to increased fall risk. Post-op day two: dressing was changed, incision was clean, dry and intact. Patient did not have any overnight events and was deemed to be medically and orthopedically stable for discharge. Physical therapy goals were met. Home Medications Medication Instructions Recorded Confirmed Type Cholecalciferol (Vitamin D3) 5,000 unit PO QAM 04/14/16 08/31/19 History [Vitamin D3] Cyanocobalamin (Vitamin B-12) 1,000 mcg PO QAM 04/14/16 08/31/19 History [Vitamin B-12] Famotidine TAB* [Pepcid 20 MG TAB*] 20 mg PO QAM 04/14/16 08/31/19 History Metoprolol Tartrate TAB* 25 mg PO QAM 04/14/16 08/31/19 History [Lopressor TAB*] amLODIPine TAB* [Norvasc 5 mg TAB*] 5 mg PO QAM 04/14/16 08/31/19 History Calcium Carbonate/Vitamin D3 1 cap PO QAM 02/17/18 08/31/19 History [Calcium 600+D Softgel] Fexofenadine (NF) [Liza 180 180 mg PO QAM 02/17/18 08/31/19 History (NF)] Magnesium 400 Mg /Zinc 1 tab PO QAM 02/17/18 08/31/19 History Potassium Gluconate 99 mg PO QAM 02/17/18 08/31/19 History Risedronate (NF) [Actonel (NF)] 150 mg PO MONTHLY 02/17/18 08/31/19 History Anastrozole [Arimidex] 1 mg PO QAM 08/22/19 08/31/19 History Atorvastatin* [Lipitor 10 MG*] 10 mg PO QAM 08/22/19 08/31/19 History Zolpidem Tartrate [Zolpidem 12.5 mg PO BEDTIME 08/22/19 08/31/19 History Tartrate ER] Fexofenadine/Pseudoephedrine 1 each PO DAILY 08/31/19 08/31/19 History [Liza-D 24 Hour Tablet] Apixaban* [Eliquis*] 2.5 mg PO BID tab 09/02/19 Rx Cyclobenzaprine TAB* [Flexeril 10 10 mg PO Q6H PRN tab 09/02/19 Rx MG TAB*] Discharge Instructions following Orthopedic Surgery: Activity: * Weight Bearing as tolerated * Continue physical therapy and occupational therapy exercises as shown Wound care: * OK to shower on post-op day 3, no bathing, swimming, or submerging wound. * Use gentle soap, pat dry. Cover with gauze, NOAH wrap or tape. * Visiting home nurse to do wound checks. Call Orthopedic office for: * Increased drainage * Redness * Increased pain * Fever Go to ER with shortness of breath or chest pain. Diet: * Regular diet * Increase fluids and fiber to prevent constipation. * Continue to use stool softeners, call office if no bowel motion within 48 hours. Medications- Sent to [facility] at [facility] yesterday as per patient request. See Home Medication List in your packet for medications that you should take after discharge. DVT Prophylaxis: Eliquis Dosin.5 mg, 1 tab every 12 hours x 30 days Pain Control: Percocet Dosin/325 mg 1-2 tabs by mouth every 4-6 hours as needed for pain. Maximum of 10 tabs per day. Cyclobenzaprine 10 mg 1 tab by mouth three times daily as needed for muscle spasm. Please note that Percocet contains Tylenol (acetaminophen). Maximum daily dose of Tylenol is 4000 mg from all sources. Antibiotics are required prior to any dental work. FOLLOW UP: Follow up with Dr. Alvarez within 10-14 days, call for appointment Please call our office with any questions or concerns ([phone])
[2019-09-02] MEDS ORDERED: Bisacodyl SUPP* 10 MG SUPP PR PRN (14:15)
[2019-09-26] MEDS ORDERED: RISEDRONATE 150 MG PO SCH (09:00)
== END 2019-09-02 10:55 | disposition home or self-care (01) ==
LOC: OR 08:55 → SSU 14:15
PROVIDERS: ADMIT Orthopaedic Surgery Adult Reconstructive Orthopaedic Surgery; ATTEND Orthopaedic Surgery Adult Reconstructive Orthopaedic Surgery
DX: M17.11 Unilateral primary osteoarthritis, right knee (principal); Z79.899 Other long term (current) drug therapy; I10 Essential (primary) hypertension; E78.00 Pure hypercholesterolemia, unspecified; R01.1 Cardiac murmur, unspecified; J45.909 Unspecified asthma, uncomplicated; Z85.3 Personal history of malignant neoplasm of breast; Z85.42 Personal history of malignant neoplasm of other parts of uterus; R55 Syncope and collapse
CPT/HCPCS: 36415; 80048; 80053; 85014; 85018; 85025; 85049; 96365; 96366; A9270-GY; C1776; G0378; G8978-GP-CJ; G8979-GP-CI; J0690; J1100; J2250; J2405; J2704; J2795; J3010; J3490

== ENCOUNTER 2019-11-22 05:39 | Day surgery (SDC) | payer MEDICARE ==
--- NOTE | 2019-11-19 16:54 | HP ---
HISTORY AND PHYSICAL: DATE OF ADMISSION/SURGERY: 11/22/19 DATE OF OFFICE VISIT: 11/19/19 SURGEON: Felicia Alvarez MD * (DICTATED BY GREGORY CALLES) PROCEDURE: Manipulation under anesthesia right total knee arthroplasty. CHIEF COMPLAINT: Right knee stiffness. HISTORY OF PRESENT ILLNESS: Ms. Mauro is a 74-year-old female who underwent a right total knee arthroplasty approximately 11 weeks ago. She has continued stiffness and has approximately 80 degrees of flexion and has elected to proceed with manipulation under anesthesia. PAST MEDICAL HISTORY: Hypertension, high cholesterol, heart murmur, asthma, uterine and breast cancer. PAST SURGICAL HISTORY: Right total knee arthroplasty, hysterectomy, tonsillectomy, lumpectomy, D and C, and cardiac catheterization. CURRENT MEDICATIONS: 1. Liza-D. 2. Liza Allergy. 3. Potassium. 4. Vitamin D3. 5. Vitamin E. 6. Aspirin 81 mg a day. 7. Famotidine 20 mg a day. 8. Amlodipine 5 mg a day. 9. Vitamin B12. 10. Arimidex 1 mg daily. 11. Atorvastatin calcium 10 mg daily. 12. Metoprolol 25 mg a day. 13. Zolpidem tartrate 10 mg q.h.s. 14. Fish oil. 15. Magnesium. 16. Calcium with vitamin D. ALLERGIES: ERYTHROMYCIN. FAMILY HISTORY: Coronary artery disease, stroke, and thyroid disease. SOCIAL HISTORY: She is a 74-year-old female. She lives with her . She does not smoke. REVIEW OF SYSTEMS: A complete 14-point review of systems reviewed with the patient was all negative or noncontributory. She denies history of DVT, PE, hepatitis, HIV, or anesthesia problems. PHYSICAL EXAMINATION GENERAL: She is well developed, well nourished, in no acute distress. VITAL SIGNS: She stands 6 feet 8 inches tall, weighs 185 pounds, her blood pressure is 128/80, and heart rate is 76. HEENT: Normocephalic, atraumatic. NECK: Supple. No palpable lymph nodes. PULMONARY: The lungs are clear to auscultation bilaterally. CARDIO: Regular rate and rhythm. Strong S1, S2. ABDOMEN: Soft, nontender, nondistended. NEUROLOGICAL: She is alert and oriented x3. MUSCULOSKELETAL: Right lower extremity: The skin is intact. There are no open wounds or abrasions. The incision is well healed. There remains a moderate effusion of the right knee joint. Range of motion is 0 to 80 degrees of flexion. Her calf is soft and nontender. She is distally neurovascularly intact. ASSESSMENT AND PLAN: Ms. Mauro is a 74-year-old female who underwent a right total knee arthroplasty approximately 11 weeks ago. She continues to have significant stiffness and has elected to proceed with the manipulation under anesthesia. The surgery is scheduled for 11/22/[address] Alvarez discussed the risks and benefits of the surgery at today's visit and all of her questions were answered. She will follow up with Dr. Alvarez 2 weeks after the surgery. GREGORY CALLES [id number]/CPS #: [id number] MTDD
[~2019-11-22 05:39] MED LIST changes: -Dexamethasone IV* 4 MG/ML 1 ML (4 MG) IV SLOW PU ONE; -Famotidine IV* 10 MG/ML 2 ML (20 mg) IV ONE; -Gabapentin CAP(*) 300 MG PO ONE; -Lactated Ringers 1000 ML Bag* 1,000 ML IV SCH; -Tranexamic Acid 1,000 MG in NS 0.9% 50 ML* (outpatient use) IV SCH; -celeCOXIB CAP* 200 MG PO ONE
[2019-11-22] MEDS ORDERED: ceFAZolin 2 GM in NS PREMIX(*) 2 GM/100 ML BAG IVPB ONE (05:54)
[2019-11-22] MEDS ORDERED: Buffered Lidocaine 1% SYRIN* 1 ML/SYRINGE INTRADERM ONE (05:54)
[2019-11-22] MEDS ORDERED: Lactated Ringers 1000 ML Bag* 1,000 ML IV SCH (06:00)
[2019-11-22] MEDS ORDERED: HYDROmorphone INJ1* 1 MG/ML SYRINGE IV PRN (07:15)
[2019-11-22] MEDS ORDERED: Naloxone* 0.4 MG/ML 1 ML VIAL IV PRN (07:15)
[2019-11-22] MEDS ORDERED: Propofol* 10 MG/ML 20 ML BTL ONE (07:30)
[2019-11-22] MEDS ORDERED: Lidocaine 2% PF * 5 ML VIAL ONE (07:30)
[2019-11-22] MEDS ORDERED: fentaNYL* 50 MCG/ML 2 ML VIAL (100 MCG VIAL) ONE (07:41)
[2019-11-22] MEDS ORDERED: Ketorolac INJ* 30 MG/ML 1 ML VIAL ONE (07:44)
[2019-11-22] MEDS ORDERED: HYDROmorphone INJ1* 1 MG/ML SYRINGE ONE (08:25)
[2019-11-22 08:50] VITALS: BP 132/74
--- NOTE | 2019-11-23 01:49 | OP ---
DATE OF OPERATION: 11/22/19 - [facility] DATE OF : 45 SURGEON: Felicia Alvarez MD ANESTHESIOLOGIST: Dr. Talbert. ANESTHESIA: General. 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 OPERATIVE PROCEDURE: Manipulation under anesthesia of right total knee arthroplasty. COMPLICATIONS: None. ESTIMATED BLOOD LOSS: None. BRIEF HISTORY/INDICATION: Ms. Mauro is a 74-year-old female who had uncomplicated right total knee arthroplasty on 08/31/19. Postoperatively, she was unable to adhere to aggressive range of motion exercises and was unable to obtain flexion greater than 80 degrees. The patient was offered manipulation under anesthesia several times, but declined and felt that she would improve with time. At her last clinic visit, she had no more than 80 degrees of flexion and elected to undergo manipulation under anesthesia. Informed consent was obtained from the patient. She understood the risks of surgery included, but were not limited to bleeding, infection, damage to nearby structures, continued pain, continued stiffness, need for further surgery, intraoperative fracture, anesthesia complications, stroke, heart attack, blood clot, and . She wished to proceed. INTRAOPERATIVE FINDINGS: Intraoperatively, the patient was noted to have preprocedure range of motion 5 to 80 degrees. Post-manipulation range of motion was 5 to 125 degrees of flexion. DESCRIPTION OF PROCEDURE: Ms. Mauro was identified in the preanesthesia unit. Her right lower extremity was marked as the correct operative side. Informed consent was signed and placed in the chart. The patient was taken to the operating room and placed under anesthesia without difficulty. Preop time- out was made to correctly identify the patient's side and site. The patient's knee was gently flexed and extended. There was audible and palpable break up of scar tissue. The knee had no erythema, minimal effusion. The knee had extensive scar tissue. 125 degrees of knee flexion was easily obtained with minimal pressure. AP and lateral C-arm views were obtained to confirm that there was no periprosthetic fracture from the manipulation. The patient's anesthesia was reversed without difficulty. She was taken to the PACU in stable condition. Intended weight bearing will be weightbearing as tolerated. She has aggressive physical therapy sessions scheduled over the next week. She will follow up with me in 2 week's time for recheck. She will have aspirin for DVT prophylaxis. [id number]/[facility] #: [id number] RUBEN
== END 2019-11-22 09:13 | disposition home or self-care (01) ==
LOC: OR 05:39
PROVIDERS: ATTEND Orthopaedic Surgery Adult Reconstructive Orthopaedic Surgery
DX: M24.661 Ankylosis, right knee (principal); Z96.651 Presence of right artificial knee joint; I10 Essential (primary) hypertension; E78.00 Pure hypercholesterolemia, unspecified; J45.909 Unspecified asthma, uncomplicated; R01.1 Cardiac murmur, unspecified; Z85.3 Personal history of malignant neoplasm of breast; Z85.42 Personal history of malignant neoplasm of other parts of uterus; I25.10 Atherosclerotic heart disease of native coronary artery without angina pectoris; M19.90 Unspecified osteoarthritis, unspecified site
CPT/HCPCS: 76000; J0690; J1170; J1885; J2704; J3010

== ENCOUNTER 2024-03-15 06:17 | Observation (INO) ==
[~2024-03-15 06:17] MED LIST changes: -Buffered Lidocaine 1% SYRIN* 1 ML/SYRINGE INTRADERM ONE; +NS 0.45% 1000 ml BAG 1,000 ML IV SCH; +Naloxone 0.4 mg VIAL 0.4 mg/ml 1 ml VIAL IV PRN; +Ondansetron 4 mg VIAL 2 MG/ML 2 ml VIAL IV PRN; +fentaNYL 100 mcg/2 ml 50 MCG/ML VIAL IV PRN
[2024-03-15] MEDS ORDERED: Phenylephrine IV 10 MG/ML 1 ml VIAL ONE (06:37)
[2024-03-15] MEDS ORDERED: Lidocaine 2% PF 10 ML AMP (OR) ONE (06:37)
[2024-03-15] MEDS ORDERED: Dexamethasone IV 4 MG/ML VIAL 1 ml VIAL ONE (06:37)
[2024-03-15] MEDS ORDERED: Ondansetron 4 mg VIAL 2 MG/ML 2 ml VIAL ONE (06:37)
[2024-03-15 07:05] LABS: Rapid COVID-19 Molecular Undetected (Undetected)
[2024-03-15] MEDS ORDERED: Midazolam 2 mg/2 ml VIAL 1 mg/ml 2 ml VIAL (2 mg) ONE ×2 (07:06→08:16)
[2024-03-15] MEDS ORDERED: fentaNYL 100 mcg/2 ml 50 MCG/ML VIAL ONE ×2 (07:06→08:16)
[2024-03-15] MEDS ORDERED: Tranexamic Acid 1 GM/100ML BAG 2,000 MG/200 ML BAG IV ONE (07:20)
[2024-03-15] MEDS ORDERED: ceFAZolin 2 GM in NS PREMIX 2 GM/100 ML BAG IVPB ONE (07:21)
[2024-03-15] MEDS ORDERED: ROPIVACAINE 5 MG/ML 30 ML BTL (0.5%) ONE ×2 (07:26→08:15)
[2024-03-15] MEDS: Lactated Ringers 1000 ml BAG 1,000 ML IV SCH ×2 (07:36→13:55)
[2024-03-15] MEDS ORDERED: Ondansetron 4 mg VIAL 2 MG/ML 2 ml VIAL IV PRN (08:43)
[2024-03-15] MEDS ORDERED: Lactulose 30 ml UDC PO PRN (08:43)
[2024-03-15] MEDS ORDERED: Magnesium Hydroxide LIQ 30 ML UDC PO PRN (08:43)
[2024-03-15] MEDS ORDERED: Calcium Carb (TUMS) 500 mg CHEW TAB PO PRN (08:43)
[2024-03-15] MEDS ORDERED: Ondansetron ODT 4 mg TAB 4 MG TAB PO PRN (08:43)
[2024-03-15] MEDS ORDERED: Morphine 2 MG/ML SYRINGE IV PRN (08:43)
[2024-03-15] MEDS: Buffered Lidocaine 1% SYRIN 1 ml INTRADERM ONE (14:06)
[2024-03-15] MEDS: Magnesium Hydroxide LIQ 30 ML UDC PO SCH (14:06)
[2024-03-15] MEDS: Vitamin THERAPEUTIC TAB PO SCH (14:06)
[2024-03-15] MEDS: Acetaminophen IV 1 GM/100ML 1,000 MG/100 ML BAG IV ONE (14:06)
[2024-03-15] MEDS ORDERED: ceFAZolin 2 GM in NS PREMIX 2 GM/100 ML BAG IVPB SCH (15:00)
[2024-03-15] MEDS: ceFAZolin 2 GM PREMIX 2 GM/50 ML BAG IV SCH (17:08)
[2024-03-16 06:09] LABS: Hematocrit 38.7 % (35-45); Hemoglobin 12.7 g/dL (11.5-14.3); Mean Platelet Volume 9.4 fL (7.5-11.2); Platelet Count 211 10^3/uL (150-450)
[2024-03-16 06:57] LABS: Calcium 8.7 mg/dL (8.6-10.3); Creatinine, Serum 0.67 mg/dL (0.51-0.95); Potassium 4.5 mmol/L (3.5-5.0); eGFR CKD-EPI 89.4 (>60)
[2024-03-16 10:38] VITALS: BP 138/62
== END 2024-03-16 13:00 | disposition home or self-care (01) ==
LOC: SSU 06:17 → OR 06:17
PROVIDERS: ADMIT Orthopaedic Surgery Adult Reconstructive Orthopaedic Surgery; ATTEND Orthopaedic Surgery Adult Reconstructive Orthopaedic Surgery